=== PATIENT | female | born 1970 | race Caucasian/White ===

== ENCOUNTER 2016-09-06 15:28 | Emergency (ER) | payer BC ==
[2016-09-06 15:42] VITALS: BP 131/76; PULSE 105; RESP 20; TEMP 98.9
--- NOTE | 2016-09-06 16:10 | ED ---
Female Urogenital HPI - General Chief complaint: Urogenital Stated complaint: Female Time Seen by Provider: 09/06/16 15:44 Source: patient, RN notes reviewed Mode of arrival: ambulatory Limitations: no limitations - History of Present Illness Initial comments: Patient is a 46-year-old female presents to the emergency room for evaluation of vaginal pain and swelling. Patient states on she noticed itching over her right labia. Patient states she's noticed increased swelling. Patient states she called her EMAIL OPERATIONS MANAGER and can't get in until Thursday. Patient states she was having increasing pain and burning at her right labia. Patient states she was concerned so she thought she should be evaluated today. Patient denies any pain or burning during urination, trouble urinating or blood in urine. Patient denies abdominal pain. Patient denies fevers or chills. Patient denies headache or dizziness. Patient denies history of STDs. Patient denies any vaginal discharge. Patient states she's been with her for 30 years and he does not have a history of STDs either. - Related Data Previous Rx's Medication Instructions Recorded Acetaminophen with Codeine 1 tab PO Q4H PRN #12 tab 09/06/16 [Tylenol w/codeine #3] valACYclovir HCL [Valacyclovir] 1,000 mg PO Q12HR 10 Days 09/06/16 Allergies Allergy/AdvReac Type Severity Reaction Status Date / Time No Known Allergies Allergy Verified 09/06/16 15:42 Review of Systems ROS Statement: Those systems with pertinent positive or pertinent negative responses have been documented in the HPI. ROS Other: All systems not noted in ROS Statement are negative. Past Medical History Past Medical History: No Reported History History of Any Multi-Drug Resistant Organisms: None Reported Past Surgical History: No Surgical Hx Reported Past Psychological History: No Psychological Hx Reported Smoking Status: Current every day smoker Past Alcohol Use History: None Reported Past Drug Use History: None Reported General Exam - General Exam Comments Initial Comments: Sitting in exam room, no distress. Limitations: no limitations General appearance: alert, in no apparent distress Head exam: Present: atraumatic, normocephalic, normal inspection Eye exam: Present: normal appearance ENT exam: Present: normal exam Neck exam: Present: normal inspection Respiratory exam: Absent: respiratory distress External exam: Present: erythema, other (Multiple clumped vesicles over right labia along with tiny ulcerating lesions.). Absent: normal external exam Extremities exam: Present: normal inspection Back exam: Present: normal inspection Neurological exam: Present: alert, oriented X3, CN II-XII intact, normal gait Psychiatric exam: Present: normal affect, normal mood Skin exam: Present: warm, dry, intact Course Vital Signs 09/06/16 15:40 Temperature 98.9 F Pulse Rate 105 H Respiratory 20 Rate Blood Pressure 131/76 O2 Sat by Pulse 99 Oximetry Medical Decision Making - Medical Decision Making Patient is a 46-year-old female presents to the emergency room for evaluation of vaginal pain and swelling. Physical exam consistent with possible genital herpes. Will start patient on Valcyclovir and pain medications. Patient states she has an EMAIL OPERATIONS MANAGER appointment on Thursday. Patient states she understands everything that was discussed with her. Return parameters discussed. Case discussed with Dr. Shah. Disposition Clinical Impression: Genital herpes Disposition: HOME SELF-CARE Condition: Good Instructions: Genital Herpes Simplex (ED) Additional Instructions: Take medications as directed. Please follow up with EMAIL OPERATIONS MANAGER on Thursday. If any new symptom arises or symptoms worsen, return to ER as soon as possible. Prescriptions: valACYclovir HCL [Valacyclovir] 1,000 mg PO Q12HR 10 Days Acetaminophen with Codeine [Tylenol w/codeine #3] 1 tab PO Q4H PRN #12 tab PRN Reason: Pain Referrals: Valeri Hernandez MD [Primary Care Provider] - 1-2 days Time of Disposition: 16:08
== END 2016-09-06 16:39 | disposition home or self-care (01) ==
LOC: EC 15:28
DX: A60.00 Herpesviral infection of urogenital system, unspecified (principal); F17.200 Nicotine dependence, unspecified, uncomplicated
CPT/HCPCS: 99283

== ENCOUNTER → 2021-10-18 | Outpatient (CLI) | payer BC ==
[2021-10-18 13:23] VITALS: BP 110/78; PULSE 99; RESP 16; TEMP 98.2
--- NOTE | 2021-10-18 13:49 | P.GSHP ---
History of Present Illness H&P Date: 10/18/21 Chief Complaint: mass left breast Mann is a 51-year-old white female seen in consultation for Dr. Hernandez regarding a mass in her left breast. She states that the mass occurred several weeks ago. It was not tender but felt solid. An ultrasound was performed of this area on 6721 which revealed a 0.7 x 0.7 cm lesion felt to be most likely a sebaceous cyst. No solid mass was seen. She had a bilateral mammogram in June 2021 which was read as normal by report at [facility]. She states the lump in her left breast has decreased in size. She has not had any recent trauma or infection in the breast. She is not complaining of any nipple discharge or skin changes. She has not had any surgery on her breast. Caffeine: 4 cups coffee/day nicotine: 1/2 PPD since a teenager chocolate: weekly hormones: none BCP: in her 20's few years Family history: paternal grandmother: breast cancer maternal grandmother: uterine cancer sister: thyroid cancer father: stomach cancer paternal uncle: liver cancer Hormonal History: menarche: 11 M1, breast fed: no, age at : 33 menopause: 48 BCP: as above Surgical history: Resection of hemangioma as a on chest wall Medical History: none Social History: Nicotine: Half a pack per day since a teenager Alcohol: Negative Drugs: negative - Constitutional Constitutional: Reports sweats - EENT Eyes: denies blurred vision, denies pain Ears: deny: decreased hearing, tinnitus Ears, nose, mouth and throat: Denies headache, Denies sore throat - Breasts Breasts: bilateral: as per HPI - Cardiovascular Cardiovascular: Denies chest pain, Denies shortness of breath - Respiratory Respiratory: Reports cough - Gastrointestinal Gastrointestinal: Denies abdominal pain, Denies diarrhea, Denies nausea, Denies vomiting - Genitourinary (Female) Genitourinary: Denies dysuria, Denies hematuria - Menstruation Menstruation: Reports postmenopausal - Musculoskeletal Musculoskeletal: Denies myalgias - Integumentary Integumentary: Denies pruritus, Denies rash - Neurological Neurological: Denies numbness, Denies weakness - Psychiatric Psychiatric: Denies anxiety, Denies depression - Endocrine Endocrine: Denies fatigue, Denies weight change - Hematologic/Lymphatic Comment: none - Allergic/Immunologic Allergic/Immunologic: Reports seasonal allergies Past Medical History Past Medical History: No Reported History History of Any Multi-Drug Resistant Organisms: None Reported Past Surgical History: No Surgical Hx Reported Past Psychological History: No Psychological Hx Reported Smoking Status: Current every day smoker Past Alcohol Use History: None Reported Past Drug Use History: None Reported Medications and Allergies Home Medications Medication Instructions Recorded Confirmed Type Multivitamin [Multivitamins Adult 1 tab PO DAILY 10/18/21 10/18/21 History Gummies] Allergies Allergy/AdvReac Type Severity Reaction Status Date / Time No Known Allergies Allergy Verified 10/18/21 13:17 Surgical - Exam Vital Signs Temp Pulse Resp BP Pulse Ox 98.2 F 99 16 110/78 99 10/18/21 13:19 10/18/21 13:19 10/18/21 13:19 10/18/21 13:19 10/18/21 13:19 BMI: 24 - General no distress - Eyes normal ocular movement - Neck trachea midline - Respiratory normal respiratory effort, clear to auscultation - Cardiovascular Rhythm: regular Heart Sounds: normal: S1, S2 - Abdomen Abdomen: soft, non tender, no guarding, no rigid, no rebound - Integumentary normal turgor - Neurologic no disoriented, no combative - Musculoskeletal normal gait, normal posture - Psychiatric oriented to time, oriented to person, oriented to place, speech is normal, memory intact Breast examination: BRA: Small sports bra or nothing Inspection: Scarlet chest wall from surgery as it infant, grade 1 ptosis bilaterally Palpation: Right breast: Positional exam fibrocystic changes no dominant masses or nodules of concern Right axilla: No adenopathy of concern Left breast: Multi-positional exam no dominant masses or nodules of concern, par ticularly attention to the area of the patient had felt the nodularity does not reveal any lesion of concern and patient states the nodule has resolved Left axilla: No adenopathy of concern Results Ultrasound result report reviewed, we have requested the other radiographic mammogram report/films Assessment and Plan Assessment: The disc impression: Probable resolved sebaceous cyst left breast Fibrocystic breast changes Plan: Obtain radiographic reports and radiographs from [facility] of the breast Repeat left breast ultrasound 6 months with physician exam at that time Follow up sooner if any questions or concerns Cc: Dr. Heranndez
== END ==
LOC: WWCWWP 12:57
PROVIDERS: ATTEND Surgery
DX: N60.11 Diffuse cystic mastopathy of right breast (principal); F17.210 Nicotine dependence, cigarettes, uncomplicated